=== PATIENT | male | born 2000 | race Caucasian/White ===

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

== ENCOUNTER 2021-07-09 12:23 | Outpatient (CLI) | payer BC | END 2021-07-09 12:24 | disposition home or self-care (01) | LOC: ULT 12:23 | PROVIDERS: ATTEND Urology | DX: N50.811 Right testicular pain (principal); R10.30 Lower abdominal pain, unspecified; R94.4 Abnormal results of kidney function studies | CPT/HCPCS: 76770; 76999 ==